=== PATIENT | male | born 1990 | race Caucasian/White ===

== ENCOUNTER 2019-06-04 00:50 | Observation (INO) | payer SELFPAY ==
[2019-06-04 01:11] LABS: #Basophils 0.1 thou/uL (0.0-0.2); #Eosinphils 0.3 thou/uL (0.0-0.7); #Lymphocytes 3.1 thou/uL (1.20-3.40); #Monocytes 0.7 thou/uL (0.11-0.59); #Neutrophils 4.2 thou/uL (1.40-6.50); %Basophils 1.6 % (0.0-1.0); %Eosinophils 3.5 % (0.0-10.0); %Lymphocytes 37.2 % (21.0-51.0); %Monocytes 7.8 % (0.0-10.0); Hemoglobin 16.5 g/dL (14.0-18.0); Mean Corpuscular HGB CONC 34.4 g/dL (32.0-36.0); Mean Corpuscular Hemoglobin 31.6 pg (27.0-31.0); Mean Corpuscular Volume 91.9 fL (78.0-98.0); Mean Platelet Volume 6.9 fL (7.4-10.4); Platelet Count 278 thou/uL (130-400); Red Blood Cell (RBC) Count 5.22 mill/uL (4.70-6.10); White Blood Cell (WBC) Count 8.4 thou/uL (4.8-10.8)
[2019-06-04 01:33] LABS: ALT (SGPT) 70 U/L (8-55); AST (SGOT) 32 U/L (5-34); Albumin 4.4 g/dL (3.5-5.0); Alkaline Phosphatase 85 U/L (40-110); Anion Gap 13 mmol/L (10-20); BUN (Urea Nitrogen) 17 mg/dL (8.9-20.6); Bilirubin, Total 0.3 mg/dL (0.2-1.2); Calc. Creatinine Clearance 0 mL/min (70-130); Calcium 9.7 mg/dL (7.8-10.44); Carbon Dioxide 24 mmol/L (22-29); Chloride 105 mmol/L (98-107); Estimated GFR-MDRD Greater than 90; Globulin 2.9 g/dL (2.4-3.5); Glucose 100 mg/dL (70-105); Potassium 3.8 mmol/L (3.5-5.1); Protein, Total 7.3 g/dL (6.0-8.3); Sodium 138 mmol/L (136-145)
[2019-06-04] MEDS ORDERED: Dextrose 5% in Water 1,000 ML IV PRN (04:45)
[2019-06-04] MEDS ORDERED: Ondansetron PF 4 MG/2 ML Vial IVP PRN (04:45)
[2019-06-04] MEDS ORDERED: Dextrose 50% Abboject 50 ML SYRINGE SLOW IVP PRN (04:45)
[2019-06-04] MEDS ORDERED: HumaLOG 300 UNITS/3 ML VIAL SC PRN (04:45)
[2019-06-04] MEDS ORDERED: Ibuprofen 600 MG TAB PO PRN (04:51)
[2019-06-04] MEDS ORDERED: Ketorolac Tromethamine 30 MG/ML VIAL ONE ×2 (05:51→11:02)
[2019-06-04] MEDS ORDERED: traMADol HCl 50 MG TAB PO PRN ×2 (07:11)
[2019-06-04] MEDS ORDERED: Morphine 4 MG/ML VIAL SLOW IVP PRN (07:11)
[2019-06-04] MEDS ORDERED: HYDROcodone/Acetaminophen 5/325 mg Tablet PO PRN ×2 (07:12)
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
[2019-06-04] MEDS ORDERED: CEFAZOLIN 2 GM in Premix Bag 1 BAG IVPB SCH ×2 (08:00→19:00)
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
[2019-06-04] MEDS: Acetaminophen 500 MG TAB PO SCH ×3 (08:25→20:44)
[2019-06-04] MEDS: Sodium Chloride 0.9% 1,000 ML IV SCH ×2 (08:25→20:07)
[2019-06-04] MEDS: Polyethylene Glycol 3350 17 GM Packet PO SCH (08:26)
[2019-06-04] MEDS: Ibuprofen 600 MG TAB PO SCH ×2 (08:26→20:07)
[2019-06-04] MEDS: Famotidine 20 MG TAB PO SCH ×2 (08:26→20:09)
[2019-06-04] MEDS: Senokot S 8.6-50 MG TAB PO SCH ×4 (08:26→21:22)
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
[2019-06-04] MEDS ORDERED: Iopamidol 370 76% 100 ML VIAL ONE (09:10)
[2019-06-04] MEDS ORDERED: Ondansetron PF 4 MG/2 ML Vial ONE (11:02)
[2019-06-04] MEDS ORDERED: PROPOFOL 200 MG/20 ML VIAL ONE (11:02)
[2019-06-04] MEDS ORDERED: Lidocaine 1% PF 5 ML VIAL ONE (11:02)
[2019-06-04] MEDS ORDERED: Glycopyrrolate 0.2 MG/ML 5 ML SYRINGE ONE (11:02)
[2019-06-04] MEDS ORDERED: EPHEDRINE 25 MG/5 ML SYRINGE ONE (11:02)
[2019-06-04] MEDS ORDERED: Dexamethasone 20 MG/5 ML VIAL ONE (11:02)
[2019-06-04] MEDS ORDERED: Rocuronium Bromide 10 MG/ML (10ML VIAL) ONE (11:02)
[2019-06-04] MEDS ORDERED: Succinylcholine Chloride 20 MG/ML 10 ml SYRINGE FS ONE (11:02)
[2019-06-04] MEDS ORDERED: PHENYLEPHRINE-NS 100 MCG/ML 10 ML SYRINGE ONE (11:02)
[2019-06-04] MEDS ORDERED: Ropivacaine 0.5% HCl/PF (150 MG/30 ML VIAL) ONE (11:02)
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
[2019-06-04 12:24] VITALS: BMI 23.7
[2019-06-04] MEDS ORDERED: Lidocaine 2% Jelly 5 ML TUBE ONE (12:30)
[2019-06-04] MEDS ORDERED: Fentanyl 100 MCG/2 ML VIAL ONE (12:30)
[2019-06-04] MEDS ORDERED: Midazolam HCl 2 mg/2 ml Vial ONE (12:45)
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
[2019-06-04] MEDS ORDERED: Meperidine HCl/PF 25 MG/ML VIAL SLOW IVP PRN (17:12)
[2019-06-04] MEDS ORDERED: PACU-Morphine 4MG/ML VIAL SLOW IVP PRN (17:12)
[2019-06-04] MEDS ORDERED: Promethazine HCl 25 MG/ML VIAL SLOW IVP PRN (17:12)
[2019-06-04] MEDS ORDERED: Morphine Sulfate 2 MG/ML SYRINGE SLOW IVP PRN (17:12)
[2019-06-04] MEDS ORDERED: Promethazine HCl 25 MG/ML VIAL IM PRN (17:12)
[2019-06-04] MEDS ORDERED: Ondansetron HCl/PF 4 MG/2 ML Vial IVP PRN (17:12)
[2019-06-04] MEDS ORDERED: HYDROmorphone 2 MG/ML VIAL SLOW IVP PRN (17:12)
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
[2019-06-04] MEDS: Silver Sulfadiazine 50 GM TUBE TOP SCH (20:09)
[2019-06-04] MEDS: Bacitracin 1 PK TOP SCH (20:10)
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
[2019-06-05] MEDS: Acetaminophen 500 MG TAB PO SCH ×3 (00:47→12:23)
[2019-06-05] MEDS: Ibuprofen 600 MG TAB PO SCH ×3 (00:47→17:15)
[2019-06-05 05:04] LABS: #Lymphocytes 1.1 thou/uL (1.20-3.40); #Monocytes 1.1 thou/uL (0.11-0.59); #Neutrophils 8.3 thou/uL (1.40-6.50); %Basophils 0.1 % (0.0-1.0); %Eosinophils 0.3 % (0.0-10.0); %Lymphocytes 10.4 % (21.0-51.0); %Monocytes 10.7 % (0.0-10.0); %Neutrophils 78.5 % (42.0-75.0); Hemoglobin 14.8 g/dL (14.0-18.0); Mean Corpuscular HGB CONC 33.1 g/dL (32.0-36.0); Mean Corpuscular Hemoglobin 30.8 pg (27.0-31.0); Mean Corpuscular Volume 92.9 fL (78.0-98.0); Mean Platelet Volume 7.2 fL (7.4-10.4); Platelet Count 264 thou/uL (130-400); Red Blood Cell (RBC) Count 4.79 mill/uL (4.70-6.10); White Blood Cell (WBC) Count 10.5 thou/uL (4.8-10.8)
[2019-06-05 05:23] LABS: Anion Gap 13 mmol/L (10-20); BUN (Urea Nitrogen) 9 mg/dL (8.9-20.6); Calc. Creatinine Clearance 197 mL/min (70-130); Calcium 8.9 mg/dL (7.8-10.44); Carbon Dioxide 22 mmol/L (22-29); Chloride 108 mmol/L (98-107); Estimated GFR-MDRD Greater than 90; Glucose 112 mg/dL (70-105); Magnesium 2.3 mg/dL (1.6-2.6); Potassium 4.2 mmol/L (3.5-5.1); Sodium 139 mmol/L (136-145)
[2019-06-05] MEDS: Polyethylene Glycol 3350 17 GM Packet PO SCH (08:45)
[2019-06-05] MEDS: Senokot S 8.6-50 MG TAB PO SCH (08:45)
[2019-06-05] MEDS: Famotidine 20 MG TAB PO SCH (08:45)
[2019-06-05] MEDS: Silver Sulfadiazine 50 GM TUBE TOP SCH (08:45)
[2019-06-05] MEDS: Bacitracin 1 PK TOP SCH (08:46)
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
[2019-06-05 15:42] VITALS: BP 134/83
[2019-06-05 15:47] VITALS: TEMP 98.4
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
== END 2019-06-05 17:45 | disposition home or self-care (01) ==
LOC: ERS 00:50 → SURG A 07:28
PROVIDERS: ADMIT Specialist; ATTEND Specialist
PROC: 0QSP34Z Reposition Left Metatarsal with Internal Fixation Device, Percutaneous Approach (ICD-10-PCS; principal; 2019-06-05)
PROC: 0QSP34Z Reposition Left Metatarsal with Internal Fixation Device, Percutaneous Approach (ICD-10-PCS; 2019-06-05)
PROC: 0PSH04Z Reposition Right Radius with Internal Fixation Device, Open Approach (ICD-10-PCS; 2019-06-05)
PROC: 0PSK04Z Reposition Right Ulna with Internal Fixation Device, Open Approach (ICD-10-PCS; 2019-06-05)
DX: S52.571A Other intraarticular fracture of lower end of right radius, initial encounter for closed fracture (principal); S52.611A Displaced fracture of right ulna styloid process, initial encounter for closed fracture; S92.342A Displaced fracture of fourth metatarsal bone, left foot, initial encounter for closed fracture; S92.352A Displaced fracture of fifth metatarsal bone, left foot, initial encounter for closed fracture; M48.32 Traumatic spondylopathy, cervical region; F17.290 Nicotine dependence, other tobacco product, uncomplicated; V87.8XXA Person injured in other specified noncollision transport accidents involving motor vehicle (traffic), initial encounter; Y92.410 Unspecified street and highway as the place of occurrence of the external cause
CPT/HCPCS: 29515; 36415; 70450; 71045; 71260; 72125; 74177; 76000; 80048; 80053; 83735; 84100; 85025; 96361; 96374; C1713; G0378; J0690; J1100; J1885; J2001; J2250; J2405; J2704; J2795; J3010; Q9967

== ENCOUNTER 2019-07-19 06:51 | Outpatient (CLI) | payer OTHER ==
[2019-07-20 16:51] LABS: SARS-CoV-2 MS2 Positive; SARS-CoV-2 N Gene Negative; SARS-CoV-2 S Gene Negative; SARS-CoV-2 orf1ab Negative
== END 2019-07-19 06:52 | disposition home or self-care (01) ==
LOC: LABBT 06:51
PROVIDERS: ATTEND Orthopaedic Surgery Hand Surgery
DX: Z01.812 Encounter for preprocedural laboratory examination (principal); Z11.59 Encounter for screening for other viral diseases; T84.84XA Pain due to internal orthopedic prosthetic devices, implants and grafts, initial encounter
CPT/HCPCS: 87635; U0003

== ENCOUNTER 2019-07-29 06:38 | Outpatient (CLI) | payer OTHER, SELFPAY ==
[2019-07-30 13:11] LABS: SARS-CoV-2 MS2 Positive; SARS-CoV-2 N Gene Negative; SARS-CoV-2 S Gene Negative; SARS-CoV-2 orf1ab Negative
== END 2019-07-29 06:39 | disposition home or self-care (01) ==
LOC: LABBT 06:38
PROVIDERS: ATTEND Orthopaedic Surgery Hand Surgery
DX: Z01.812 Encounter for preprocedural laboratory examination (principal); Z11.59 Encounter for screening for other viral diseases; T84.84XA Pain due to internal orthopedic prosthetic devices, implants and grafts, initial encounter
CPT/HCPCS: 87635; U0003

== ENCOUNTER 2019-08-02 09:31 | Day surgery (SDC) | payer SELFPAY ==
[2019-07-26 10:30] VITALS: BMI 24.3
[2019-08-02] MEDS ORDERED: PROPOFOL 200 MG/20 ML VIAL ONE (10:29)
[2019-08-02] MEDS ORDERED: Ondansetron PF 4 MG/2 ML Vial ONE (10:29)
[2019-08-02] MEDS ORDERED: Bupivacaine PF 0.5% 30 ML VIAL ONE (12:13)
[2019-08-02] MEDS ORDERED: Lidocaine 2% PF 5 ML VIAL ONE (12:13)
[2019-08-02] MEDS ORDERED: Bacitracin Zinc Ointment 30 gm TUBE ONE ×2 (12:14→13:24)
[2019-08-02] MEDS ORDERED: Midazolam HCl 2 mg/2 ml Vial ONE (12:18)
[2019-08-02] MEDS ORDERED: Fentanyl 100 MCG/2 ML VIAL ONE (12:18)
--- NOTE | 2019-08-02 13:20 | RAD ---
Exam:Intraoperative fluoroscopy HISTORY: Hardware removal COMPARISON: None FINDINGS: Intraprocedure fluoroscopy demonstrates removal of 2 K wires along the distal aspect of the radius. 2 K wires on the distal aspect of the ulna and a side plate with screws that traverse the distal radius do remain Exposure: 1 second, 0.25574 ellington per centimeter square, 0.0137 mGy IMPRESSION: Fluoroscopy as above
[2019-08-02] MEDS ORDERED: Ketorolac Tromethamine 30 MG/ML VIAL ONE (13:58)
--- NOTE | 2019-08-02 16:37 | OP ---
DATE OF PROCEDURE: 08/02/2019 PREOPERATIVE DIAGNOSIS: Right distal radius fracture, healing with deep K-wires, causing pain. POSTOPERATIVE DIAGNOSES: 1. Right distal radius fracture, healing with deep K-wires, causing pain. 2. Findings of bursal inflammation of one K-wire, the other K-wire buried just underneath superficial radial nerve branch. PROCEDURES PERFORMED: 1. Removal of deep implants x2, right distal radius. 2. C-arm supervision. COMPLICATIONS: None. TOURNIQUET TIME: 5 minutes. INDICATIONS: The patient has a very complex distal radius fracture, in 5 parts in 2 planes, requiring bone graft from inside the bone out to restore any semblance of radius height, although with motion patient reports marked pain over the K-wires on the radius and none on the ulna and it is noted that the ulna wires were intended to be permanent. DESCRIPTION OF PROCEDURE: After successful anesthesia listed above, the limb prepped and draped. We exsanguinated the limb, inflated the tourniquet to 250 mmHg pressure. We brought the C-arm to the field, identified the 2 radial K-wires in frontal sagittal plane and made a 5 mm incision over the point and dissected until we seen the K-wires. There was a bursal sac with more proximal K-wire and a more distal K-wire that was in proximity almost adjacent to superficial radial nerve branches. We removed the wires. We performed radiographs of the distal radius fracture, not changed with no fracture alignment or intercarpal alignment changes. The patient had the tourniquet deflated, hemostasis obtained, the wound closed with interrupted 4-0 chromic suture. He left the operating room without a brace or a splint, in a small bulky dressing. No evidence of anesthetic or operative complication. Job ID: [id number]
== END 2019-08-02 14:25 | disposition home or self-care (01) ==
LOC: SDC 09:31
PROVIDERS: ATTEND Orthopaedic Surgery Hand Surgery
PROC: 0XP60YZ Removal of Other Device from Right Upper Extremity, Open Approach (ICD-10-PCS; principal; 2019-08-02)
DX: T84.84XA Pain due to internal orthopedic prosthetic devices, implants and grafts, initial encounter (principal); Z87.891 Personal history of nicotine dependence
CPT/HCPCS: 76000; J0690; J1885; J2001; J2250; J2405; J2704; J3010; J3490; S0020